=== PATIENT | female | born 1975 | race Caucasian/White ===

== ENCOUNTER 2017-12-11 23:57 | Emergency (ER) | payer MEDICAID ==
[~2017-12-11] VITALS: Ht 154.9 cm; Wt 86.0 kg
[~2017-12-11 23:57] MED LIST: ALBU2.5V13 IH; FLONAS NS; PROT20 PO
[2017-12-12 00:09] VITALS: BP 161/108
[2017-12-12] MEDS ORDERED: SILVER NITRATE APPLICATOR STICK TOP ONE (01:45)
== END 2017-12-12 02:30 | disposition home or self-care (01) ==
LOC: ER 23:57
DX: Z48.00 Encounter for change or removal of nonsurgical wound dressing (principal); J45.909 Unspecified asthma, uncomplicated; K21.9 Gastro-esophageal reflux disease without esophagitis
CPT/HCPCS: 99282

== ENCOUNTER 2020-07-18 02:01 | Emergency (ER) | payer MEDICAID, OTHER ==
[~2020-07-18] VITALS: Ht 154.9 cm; Wt 84.0 kg
[2020-07-18] MEDS ORDERED: KETOROLAC 60MG/2ML VIAL IM ONE (03:00)
[2020-07-18 05:40] VITALS: BP 139/88
== END 2020-07-18 05:42 | disposition home or self-care (01) ==
LOC: ER 02:01
DX: S66.811A Strain of other specified muscles, fascia and tendons at wrist and hand level, right hand, initial encounter (principal); V49.59XA Passenger injured in collision with other motor vehicles in traffic accident, initial encounter; Y93.89 Activity, other specified; Y92.89 Other specified places as the place of occurrence of the external cause; Y99.8 Other external cause status; D64.9 Anemia, unspecified; F41.9 Anxiety disorder, unspecified; J45.909 Unspecified asthma, uncomplicated
CPT/HCPCS: 73110; 73562; 96372; 99284; J1885

== ENCOUNTER 2020-09-23 17:09 | Emergency (ER) | payer MEDICAID ==
[~2020-09-23] VITALS: Ht 162.6 cm; Wt 62.0 kg
[2020-09-23 20:03] LABS: CLARITY URINE CLEAR (CLEAR); COLOR URINE YELLOW (YELLOW); KETONES URINE 1+ (NEGATIVE); LEUKOCYTE ESTERASE URINE TRACE (NEGATIVE); NITRITE URINE NEGATIVE (NEGATIVE); OCCULT BLOOD URINE 2+ (NEGATIVE); PROTEIN URINE NEGATIVE (NEGATIVE); UROBILINOGEN URINE 0.2 E.U./dL (0.2-1.0)
[2020-09-23] MEDS ORDERED: LIDOCAINE 1%/EPI 1:100,000 10 ML VIAL IJ ONE (21:30)
[2020-09-23] MEDS ORDERED: KETOROLAC 60MG/2ML VIAL IM ONE (21:30)
[2020-09-23] MEDS ORDERED: LIDOCAINE HCL/EPINEPHRINE 1%-EPI 1:100,000 20 ML VIAL INFIL NR (21:45)
[2020-09-23 21:55] VITALS: BP 138/117
== END 2020-09-23 23:13 | disposition home or self-care (01) ==
LOC: ER 17:09
DX: N75.1 Abscess of Bartholin's gland (principal)
CPT/HCPCS: 56420; 81003; 81025; 96372; 99284; J1885; J3490; Z7610

== ENCOUNTER 2021-01-24 14:35 | Emergency (ER) | payer MEDICAID ==
[~2021-01-24] VITALS: Ht 154.9 cm; Wt 63.0 kg
[2021-01-24 15:43] LABS: CLARITY URINE CLEAR (CLEAR); COLOR URINE YELLOW (YELLOW); KETONES URINE NEGATIVE (NEGATIVE); LEUKOCYTE ESTERASE URINE NEGATIVE (NEGATIVE); NITRITE URINE NEGATIVE (NEGATIVE); OCCULT BLOOD URINE 1+ (NEGATIVE); PROTEIN URINE NEGATIVE (NEGATIVE); SPECIFIC GRAVITY URINE 1.008 (1.005-1.030); UROBILINOGEN URINE 0.2 E.U./dL (0.2-1.0)
[2021-01-24] MEDS ORDERED: BACITRACIN ZINC OINT UDPKT TOP ONE (16:00)
[2021-01-24] MEDS ORDERED: LIDOCAINE HCL/EPINEPHRINE 1%-EPI 1:100,000 10 ML VIAL IJ ONE (16:00)
[2021-01-24] MEDS ORDERED: LIDOCAINE HCL/EPINEPHRINE 1%-EPI 1:100,000 20 ML VIAL INFIL ONE (16:00)
[2021-01-24] MEDS ORDERED: ACETAMINOPHEN WITH CODEINE 300/30MG TABLET PO NR (16:15)
[2021-01-24] MEDS ORDERED: T3 PO (17:26)
[2021-01-24 18:03] VITALS: BP 148/90
== END 2021-01-24 18:03 | disposition home or self-care (01) ==
LOC: ER 14:35
DX: N75.1 Abscess of Bartholin's gland (principal); J45.909 Unspecified asthma, uncomplicated; K21.9 Gastro-esophageal reflux disease without esophagitis; D64.9 Anemia, unspecified; Z79.899 Other long term (current) drug therapy; Z88.8 Allergy status to other drugs, medicaments and biological substances
CPT/HCPCS: 56420; 81003; 81025; 99284; Z7610; J3490

== ENCOUNTER 2023-09-25 13:10 | Emergency (ER) | payer MEDICAID ==
[~2023-09-25] VITALS: Ht 157.5 cm; Wt 63.0 kg
[~2023-09-25 13:10] MED LIST changes: +T3 PO
[2023-09-25 13:19] VITALS: O2SAT 100
[2023-09-25] MEDS ORDERED: LIDOCAINE HCL/PF 1% 10 MG/ML 5ML VIAL INFIL ONE (16:45)
[2023-09-25] MEDS ORDERED: BACITRACIN ZINC OINT UDPKT TOP ONE (16:45)
[2023-09-25] MEDS ORDERED: TETANUS, DIPHTHERIA, PERTUSSIS VAC/PF 0.5ML (>10YR OLD) IM ONE ×2 (16:45→17:15)
[2023-09-25] MEDS ORDERED: KETOROLAC 30MG/ML VIAL IV ONE (17:15)
[2023-09-25] MEDS ORDERED: BACITRACIN ZINC OINT UDPKT TOP NR (17:15)
[2023-09-25] MEDS ORDERED: LIDOCAINE HCL/PF 1% 10 MG/ML 5ML VIAL INFIL NR (17:15)
[2023-09-25] MEDS ORDERED: AMOX1TAB16 MT (17:58)
[2023-09-25] MEDS ORDERED: TOPUD MT (17:58)
[2023-09-25] MEDS ORDERED: SULF1TAB48 MT (17:58)
[2023-09-25] MEDS ORDERED: IBUP-2028 MT (18:03)
[2023-09-25 18:10] VITALS: BP 137/88; PULSE 98; RESP 18; TEMP 98.2
== END 2023-09-25 18:13 | disposition home or self-care (01) ==
LOC: ER 13:10
DX: N75.1 Abscess of Bartholin's gland (principal); D64.9 Anemia, unspecified; F41.9 Anxiety disorder, unspecified; J45.909 Unspecified asthma, uncomplicated; E11.9 Type 2 diabetes mellitus without complications; K21.9 Gastro-esophageal reflux disease without esophagitis; Z79.899 Other long term (current) drug therapy
CPT/HCPCS: 81025; 90715; 56420; 90471; 96374; 99284; J1885; J3490; Z7610 ×5

== ENCOUNTER 2024-07-27 08:52 | Emergency (ER) | payer MEDICAID ==
[~2024-07-27] VITALS: Ht 157.5 cm; Wt 79.4 kg
[~2024-07-27 08:52] MED LIST changes: +AMOX1TAB16 MT; +IBUP-2028 MT; +SULF1TAB48 MT; +TOPUD MT
[2024-07-27 08:59] VITALS: O2SAT 96
[2024-07-27 09:40] LABS: BASOPHILS % 0.6 % (0.0-2.0); EOSINOPHILS % 2.6 % (0.0-5.0); HEMATOCRIT. 42.5 % (36.0-48.0); HEMOGLOBIN. 14.7 g/dL (12.0-16.0); LYMPHOCYTES % 31.8 % (20.0-50.0); MEAN CORPUSCULAR HEMOGLOBIN 30.3 pg (28.0-32.0); MEAN CORPUSCULAR HGB CONC 34.7 g/dL (31.0-37.0); MEAN CORPUSCULAR VOLUME 87.5 fL (81.0-99.0); MEAN PLATELET VOLUME 9.3 fl (7.4-10.4); MONOCYTES % 6.2 % (2.0-8.0); NEUTROPHILS % 58.8 % (40.0-76.0); PLATELET 316 x1000/uL (130-400); RED BLOOD CELL COUNT 4.86 mill/uL (4.2-5.4); RED CELL DISTRIBUTION WIDTH 14.6 % (11.6-14.6); WHITE BLOOD COUNT 6.3 x1000/uL (4.5-11.0)
[2024-07-27 09:42] LABS: CHLORIDE 104 mEq/L (98-107); POTASSIUM 3.9 mEq/L (3.5-5.1); SODIUM 138 mEq/L (136-145)
[2024-07-27 09:43] LABS: CARBON DIOXIDE 26 mEq/L (21-32)
[2024-07-27 09:44] LABS: CALCIUM 9.9 mg/dL (8.7-10.4)
[2024-07-27 09:48] LABS: CREATININE 0.9 mg/dL (0.6-1.0); GLUCOSE 199 mg/dL (70-105)
[2024-07-27 09:49] LABS: UREA NITROGEN BLOOD 18 mg/dL (9-23)
[2024-07-27 10:14] LABS: TROPONIN I HIGH SENSITIVITY < 4 ng/L (3.0-34)
[2024-07-27 10:15] LABS: INR 0.9; PROTHROMBIN TIME 9.9 sec (9.6-11.0)
[2024-07-27 10:19] LABS: HCG SCREEN NEGATIVE
[2024-07-27 10:26] LABS: ALANINE AMINOTRANSFERASE 35 IU/L (10-49); ALBUMIN 4.8 g/dL (3.2-4.8); ASPARTATE AMINOTRANSFERASE 28 IU/L (<34); BILIRUBIN TOTAL 0.5 mg/dL (0.1-1.0); PROTEIN TOTAL 7.9 g/dL (6.0-8.3)
[2024-07-27 10:33] LABS: BILIRUBIN DIRECT < 0.1 mg/dL (<=3.0)
[2024-07-27 10:55] LABS: D-DIMER 0.19 mg/L FEU (<0.50)
[2024-07-27 11:49] LABS: CLARITY URINE CLEAR (CLEAR); COLOR URINE YELLOW (YELLOW); GLUCOSE URINE 2+ (NEGATIVE); KETONES URINE NEGATIVE (NEGATIVE); LEUKOCYTE ESTERASE URINE TRACE (NEGATIVE); NITRITE URINE NEGATIVE (NEGATIVE); OCCULT BLOOD URINE TRACE (NEGATIVE); PH URINE 5.5 (4.5-8.0); PROTEIN URINE TRACE (NEGATIVE); SPECIFIC GRAVITY URINE 1.021 (1.005-1.030); UROBILINOGEN URINE 0.2 E.U./dL (0.2-1.0)
[2024-07-27 11:55] LABS: TROPONIN I HIGH SENSITIVITY 4 ng/L (3.0-34)
[2024-07-27 11:59] LABS: THYROID STIMULATING HORMONE 0.82 uIU/mL (0.55-4.78)
[2024-07-27 12:18] LABS: SQUAMOUS EPITHELIAL CELL URINE 1+ /lpf (RARE/1+); URIC ACID CRYSTALS URINE 2+ /lpf
[2024-07-27 12:19] LABS: BACTERIA URINE TRACE
[2024-07-27 12:20] LABS: RBC URINE NONE SEEN /hpf (0-2); WBC URINE 0-2 /hpf (0-2)
[2024-07-27 12:36] VITALS: BP 163/97; PULSE 92; RESP 20; TEMP 37.00296; O2SAT 96
== END 2024-07-27 13:41 | disposition home or self-care (01) ==
LOC: ER 08:52
DX: R00.2 Palpitations (principal); I10 Essential (primary) hypertension; F41.9 Anxiety disorder, unspecified; E11.9 Type 2 diabetes mellitus without complications; J45.909 Unspecified asthma, uncomplicated; K21.9 Gastro-esophageal reflux disease without esophagitis; Z79.899 Other long term (current) drug therapy; Z90.89 Acquired absence of other organs
CPT/HCPCS: 36415; 71045; 80048; 80076; 81003; 81025; 83880; 84443; 84484; 84703; 85025; 85379; 93005; 99285

== ENCOUNTER 2024-10-18 05:10 | Emergency (ER) | payer MEDICAID ==
[~2024-10-18] VITALS: Ht 154.9 cm; Wt 82.0 kg
[2024-10-18 05:32] VITALS: O2SAT 98
[2024-10-18] MEDS: ACETAMINOPHEN 325MG TABLET PO ONE (06:50)
[2024-10-18] MEDS ORDERED: KETO10TA2 MT (07:09)
[2024-10-18 07:18] VITALS: BP 154/80; PULSE 78; RESP 20; TEMP 36.50292; O2SAT 100
== END 2024-10-18 07:20 | disposition home or self-care (01) ==
LOC: ER 05:18
DX: R20.2 Paresthesia of skin (principal); M79.672 Pain in left foot; M79.641 Pain in right hand; F41.9 Anxiety disorder, unspecified; J45.909 Unspecified asthma, uncomplicated; E11.9 Type 2 diabetes mellitus without complications; I10 Essential (primary) hypertension; Z88.6 Allergy status to analgesic agent; Z90.89 Acquired absence of other organs; Z98.890 Other specified postprocedural states; Z79.899 Other long term (current) drug therapy
CPT/HCPCS: 99283

== ENCOUNTER 2025-02-09 07:44 | Emergency (ER) | payer MEDICAID, OTHER ==
[~2025-02-09] VITALS: Ht 170.2 cm; Wt 77.0 kg
[~2025-02-09 07:44] MED LIST changes: +KETO10TA2 MT
[2025-02-09 07:54] VITALS: O2SAT 100
[2025-02-09 08:13] LABS: BASOPHILS % 1.1 % (0.0-2.0); EOSINOPHILS % 2.6 % (0.0-5.0); HEMATOCRIT. 41.2 % (36.0-48.0); HEMOGLOBIN. 13.8 g/dL (12.0-16.0); LYMPHOCYTES % 36.6 % (20.0-50.0); MEAN CORPUSCULAR HEMOGLOBIN 27.6 pg (28.0-32.0); MEAN CORPUSCULAR HGB CONC 33.3 g/dL (31.0-37.0); MEAN CORPUSCULAR VOLUME 82.9 fL (81.0-99.0); MEAN PLATELET VOLUME 9.1 fl (7.4-10.4); MONOCYTES % 5.4 % (2.0-8.0); NEUTROPHILS % 54.3 % (40.0-76.0); PLATELET 317 x1000/uL (130-400); RED BLOOD CELL COUNT 4.97 mill/uL (4.2-5.4); RED CELL DISTRIBUTION WIDTH 14.9 % (11.6-14.6); WHITE BLOOD COUNT 7.1 x1000/uL (4.5-11.0)
[2025-02-09 08:20] LABS: CHLORIDE 105 mEq/L (98-107); POTASSIUM 3.9 mEq/L (3.5-5.1); SODIUM 139 mEq/L (136-145)
[2025-02-09 08:21] LABS: CALCIUM 9.4 mg/dL (8.7-10.4); CARBON DIOXIDE 24 mEq/L (21-32)
[2025-02-09 08:26] LABS: CREATININE 0.7 mg/dL (0.6-1.0); GLUCOSE 154 mg/dL (70-105); UREA NITROGEN BLOOD 16 mg/dL (9-23)
[2025-02-09 08:36] LABS: TROPONIN I HIGH SENSITIVITY < 4 ng/L (3.0-34)
[2025-02-09 11:11] LABS: TROPONIN I HIGH SENSITIVITY < 4 ng/L (3.0-34)
[2025-02-09 11:38] VITALS: BP 169/96; PULSE 100; RESP 14; TEMP 37; O2SAT 100
== END 2025-02-09 11:39 | disposition home or self-care (01) ==
LOC: ER 07:44
DX: R00.2 Palpitations (principal); R07.89 Other chest pain; E11.9 Type 2 diabetes mellitus without complications; I10 Essential (primary) hypertension; J45.909 Unspecified asthma, uncomplicated; Z79.899 Other long term (current) drug therapy; Z90.89 Acquired absence of other organs
CPT/HCPCS: 36415; 71045; 80048; 84484; 85025; 93005; 99285